=== PATIENT | female | born 1955 | race Caucasian/White ===

== ENCOUNTER → 2016-12-21 | Outpatient (CLI) | payer OTHER ==
[~2016-12-21] MED LIST: LISI10TA7 PO; ZOLP5TAB2 PO
--- NOTE | 2016-12-21 11:33 | DI ---
Indication: ITS.REASON: M79.652 PAIN IN LEFT THIGH PROCEDURE: AP and Lateral views of the Left Femur Encounter: Initial Comparison: None Findings: There is no acute fracture, dislocation or malalignment identified. Intramedullary nail in the left femur. Old healed distal femoral diaphyseal fracture. No evidence of hardware loosening or failure. Impression: No acute osseous abnormality. .
--- NOTE | 2016-12-21 11:34 | DI ---
Indication: ITS.REASON: M25.562 PAIN IN LEFT KNEE PROCEDURE: KNEE LEFT 3 VIEWS: Encounter: Initial Comparison: None Findings: There is no acute fracture, dislocation or malalignment identified. Mild medial compartment joint space narrowing. Intramedullary nail seen in the distal femur without evidence of loosening. Old healed distal femoral fracture is partially visualized. Impression: Mild medial osteoarthritis. .
== END ==
LOC: IMA 10:50
PROVIDERS: ATTEND Family Medicine
DX: M17.12 Unilateral primary osteoarthritis, left knee (principal); M79.652 Pain in left thigh

== ENCOUNTER 2017-09-12 07:30 | Inpatient (IN) ==
--- NOTE | 2017-09-22 14:59 | Orthopedic History & Physical ---
Orthopedic HPI - HPI Comments Lt knee pain for many years. Pain is moderate, aching, burning and worsening. Pain radiates into the quad. Aggrevated by wt bearing, walking, stairs and squatting. Tx tried: Rest ice, heat, Aleve, steroid injections, exercises and PT. Associated sx: Weakness, swelling, feeling of giving out. Xrays show deg changes with loss of joint space, subchondral sclerosis. PFSH Patient Stated Medical History Hypertension Yes Sleep Apnea No Osteoarthritis Yes Shingles Yes: 2015 Anesthesia Reactions Yes: N&V Ovarian Cysts Yes Post Menopausal Yes Clinic Medical History (Last Reviewed 08/11/17 @ 13:36 by Chase Torres MD) HTN (hypertension) (Acute Medical) Surgical History: 1. Left breast biopsy in 1975 at [place], [place]. 2. [place] teeth removed at some time in the at [place], [place]. 3. Debridement of open fracture at left femur with insertion of a tibial traction pin on [address] Mary at [facility] [place], [place]. Discharge diagnosis was open fracture at left femur. 4. Application of cast brace at left femur on 04/05/[address] Mary at [facility] [place], [place]. Discharge diagnosis was compound fracture at left femur and posttraumatic anemia. 5. Nailing of left femoral nonunion in July [address] Mary at [facility] [place], [place]. 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 6. Removal of screws at distal left femur on 06/23/[address] Mary at [place], [place]. Discharge diagnosis was status post fracture of left femur. 7. Arthroscopy at left knee with debridement of chondromalacia and exchange of intramedullary lyric at left femur on 01/05/[address] Mary at [place], [place]. Postoperative diagnoses were chondromalacia of the left knee, internal derangement of left knee and status post fracture of left femur with delayed union and painful bursitis over end of nail. 8. Operative laparoscopy with right oophorectomy and endometrial sampling on 08/23/[address] Up at [facility] at [place], [place]. Postoperative diagnoses were postmenopausal bleeding and complex right ovarian mass. The pathology report diagnosis on the right ovary was luteinized follicle cyst. 9. Total colonoscopy with polypectomy on 02/20/[address] Walton at [facility] [place], [place]. Discharge diagnoses were colon polyp, mild sigmoid colon diverticulosis, internal hemorrhoids and hematochezia. 10. Laparoscopic cholecystectomy, intraoperative cholangiograms and needle biopsies of the liver on 11/23/[address] Walton at [facility] [place], [place]. Pathology report diagnosis on the gallbladder was chronic cholecystitis with cholelithiasis. Pathology report diagnosis on core needle biopsies of the liver was focal mild steatosis. Family History: Family History (Last Reviewed 08/11/17 @ 13:36 by Chase Torres MD) Mother Arthritis Breast cancer HTN (hypertension) - Social History Smoking status: Former smoker Review of Systems - Constitutional Constitutional: Absent: chills, fever(s) - Cardiovascular Cardiovascular: Absent: chest pain - Respiratory Respiratory: Absent: cough - Gastrointestinal Gastrointestinal: Absent: abdominal pain - Genitourinary Genitourinary General: Absent: fever(s) - Musculoskeletal Musculoskeletal: Present: as per HPI - Neurological Neurological: Absent: numbness, tingling Medications Home Medications Medication Instructions Recorded Confirmed Type Zolpidem Tartrate [Ambien] 5 mg PO HS #0 tab 05/02/15 08/10/17 History Tylenol Arthritis 650 mg 1,300 mg PO Q8H PRN tab 02/23/17 08/10/17 History tablet,extended release Lisinopril [Prinivil] 10 mg PO DAILY 08/10/17 08/10/17 History Tramadol HCl [Ultram] 50 - 100 mg PO Q8H PRN 08/10/17 08/10/17 History Allergies Allergy/AdvReac Type Severity Reaction Status Date / Time morphine Allergy Intermediate HIVES Verified 08/09/17 14:43 Orthopedic Exam - Constitutional General Appearance: Present: alert, cooperative, no acute distress - Respiratory Exam Present: non-labored - Cardiovascular Exam Present: pedal pulses intact Capillary Refill: < 2-3 Seconds - Abdominal Exam Present: soft. Absent: tenderness, distended - Extremities Exam Present: pulses intact. Absent: cyanosis, clubbing, edema, calf tenderness - Knee Exam left Knee Exam: Present: tender along joint line, Varus deformity, stable to ligament exam, effusion - Integumentary Exam Present: pink, warm, dry, intact. Absent: rash, lesions, bruising, erythema - Neurological Exam Present: intact to light touch, no deficits - Psychiatric Exam Present: alert, oriented, normal affect Orthopedic Assessment and Plan (1) Primary osteoarthritis of left knee Status: Acute Assessment and Plan: Risks and benefits of the recommended procedure were discussed with the patient. They include: infection, nerve damage, artery damage, stroke, NM, PE, DVT, ileus, continued pain. There are also medical risks of anesthesia. Risks are not limited to the above mentioned alone. See Dr Torres's office dictation for more information. Dilshad is being admitted for a lt TKA. - Anticoagulation Therapy Anticoagulation: Resume home anticoagulant Hospital Course Summary Disclaimer: The visit summary below is not to be considered part of the above Progress Note.
[2017-09-26] MEDS ORDERED: ACETAMINOPHEN 500 MG TABLET PO ONE (06:00)
[2017-09-26] MEDS ORDERED: FAMOTIDINE PB 20 MG/50 ML BAG IV ONE (06:00)
[2017-09-26] MEDS ORDERED: DEXAMETHASONE 4 MG/ML INJECTION IVP ONE (06:00)
[2017-09-26] MEDS ORDERED: ONDANSETRON 4 MG/2 ML INJECTION IVP ONE (06:00)
[2017-09-26] MEDS ORDERED: TRANEXAMIC ACID 1,000 MG in NS 100 ML IV ONE ×2 (06:00→07:00)
[2017-09-26] MEDS ORDERED: LIDOCAINE 1% (10mg/ml) 2mL INJ PF SDV ID ONE (06:00)
[2017-09-26] MEDS ORDERED: MELOXICAM 15 MG TABLET PO ONE (06:00)
[2017-09-26] MEDS ORDERED: METOCLOPRAMIDE 10mg/2ml INJECTION IVP ONE (06:00)
[2017-09-26] MEDS ORDERED: EPINEPHrine PF 0.25 MG, BUPIVACAINE 0.25% PF 30 ML, KETOROLAC INJ 60 MG in NS 30 ML OPSITE ONE (08:00)
[2017-09-26 08:19] VITALS: BMI 32.8
[2017-09-26] MEDS ORDERED: CEFAZOLIN 1 G INJECTION IVP ONE (08:42)
[2017-09-26] MEDS: NOZIN NASAL SWAB NAS SCH ×6 (08:43→23:32)
--- NOTE | 2017-09-26 09:54 | Anesthesia Preoperative Report ---
Anesthesia Preoperative Record - Date and Time Date: 09/26/17 Preoperative Diagnosis: Lt TKA M17.12 Proposed Procedure: left TKA, robot NPO Since Date: 09/25/17 NPO Since Time: 23:00 Allergies/Adverse Reactions: Allergies Allergy/AdvReac Type Severity Reaction Status Date / Time morphine Allergy Intermediate Blister Verified 09/26/17 08:30 - Vital Signs Vital Signs: Temperature 97.8 F 09/26/17 08:17 Pulse Rate 63 09/26/17 08:52 Respiratory Rate 18 09/26/17 08:52 Blood Pressure 150/74 H 09/26/17 08:52 Pulse Oximetry 99 09/26/17 08:17 Height and Weight: Height 5 ft 3 in Weight 84.1 kg Body Mass Index 32.8 - Medications Inpatient Medications: Current Medications Lactated Ringer's (Lactated Ringers) 1,000 mls @ 50 mls/hr IV .Q20H [facility] Last Admin: 09/26/17 08:40 Dose: 50 mls/hr Epinephrine HCl 0.25 mg/Bupivacaine HCl 30 ml/Ketorolac Tromethamine 60 mg/ Sodium Chloride 62.25 mls @ 1 mls/hr OPSITE INTRAOP ONE PRN Reason: Protocol Stop: 09/28/17 22:14 Isopropyl Alcohol (Nozin Nasal Swab) 1 each LISBET Q1M JEAN Stop: 09/26/17 15:03 Last Admin: 09/26/17 08:46 Dose: 1 each Sodium Chloride (Iv Flush) 10 - 80 ml IV PRN PRN PRN Reason: Flushing Home Medications: Home Medications Medication Instructions Recorded Confirmed Type Zolpidem Tartrate [Ambien] 5 mg PO HS #0 tab 05/02/15 09/26/17 History Tylenol Arthritis 650 mg 1,300 mg PO Q8H PRN tab 02/23/17 08/10/17 History tablet,extended release Lisinopril [Prinivil] 10 mg PO DAILY 08/10/17 09/26/17 History Tramadol HCl [Ultram] 50 - 100 mg PO Q8H PRN 08/10/17 08/10/17 History cycloSPORINE [Restasis Multidose] 1 drops EACH EYE BID 09/26/17 09/26/17 History Is Patient on Beta Minoo?: No - Medical History Respiratory: DENIES: Asthma, Sleep Apnea Cardiovascular: Reports: Hypertension Gastrointestional: DENIES: Gastroesophageal Reflux Disease Neuro/Musculoskeletal: Reports: HX.MS.OSAR, Other (FX LEFT FEMUR 1994) Other History: Reports: Anesthesia Reactions (N&V) - Surgical History HEENT Surgeries: Reports: Oral Surgery (WISDOM TEETH), Other (GRINDS TEETH) GI Surgery/Treatments: Reports: Cholecystectomy, Colonoscopy Musculoskeletal Surgery/Tx: Reports: Knee Arthroscopy (LEFT), Other (LEFT FEMORAL NAILING,DEBRIDEMENT) Reproductive Surgery/Treatment: Reports: Oophorectomy (LEFT) Anesthesia Reactions: None Hx Family Anesthesia Reaction: No History of Motion Sickness: No - Social History Smoking Status: Former smoker Hx Chewing Tobacco Use: No Second Hand Exposure: No Substance Use Type: does not use Alcohol Intake: current Alcohol Intake Frequency: does not drink - Pertinent Findings EKG: Sinus Rhythm - Physical Exam Respiratory Exam: Present: lungs clear, bilateral breath sounds equal Cardiovascular Exam: Present: regular rate and rhythm - Airway Assessment Mallampati Score: II TMD: 3 Fingerbreadths Neck Extension: good Overall Assessment: no airway concerns - ASA ASA Score: 2 - Plan Anesthesia: General TIVA, Neuroaxial - Discussion Discussion: Discussed risks/options/alternatives of anesthesia and questions answered. Patient consents. Nursing pain assessment noted. Present for Discussion: spouse, children (daughter) Attestation Statement: Prior to the delivery of any anesthetic medication, I examined the patient, developed the plan, obtained the patient's consent and discussed the risk and benefits of the procedure with the patient/guardian. - Additional Information Seen by Anesthesia: Yes
[2017-09-26] MEDS ORDERED: VANCOMYCIN 1,000 MG INJECTION ONE (10:00)
[2017-09-26] MEDS ORDERED: MIDAZOLAM 2mg/2ml INJECTION ONE (10:05)
[2017-09-26] MEDS ORDERED: BUPIVACAINE 0.75%/DEXTROSE 8.5% SPINAL 2 ML AMPULE IJ ONE (10:05)
[2017-09-26] MEDS ORDERED: LIDOCAINE 2% (100mg/5mL) PF 5ml vl ONE (10:56)
[2017-09-26] MEDS ORDERED: VANCOMYCIN 1,000 MG INJECTION IAR ONE (11:02)
[2017-09-26] MEDS ORDERED: EPHEDRINE 50mg/ml INJECTION ONE (11:09)
[2017-09-26] MEDS ORDERED: SALINE FLUSH 10ml SYRINGE ONE (11:10)
[2017-09-26] MEDS ORDERED: PROPOFOL 20 ML ONE ×3 (11:13→12:19)
--- NOTE | 2017-09-26 12:26 | Operative Note ---
- Procedure Preoperative Diagnosis: Left knee primary degenerative joint disease Postoperative Diagnosis: Same as preoperative diagnosis. Surgeon: Ellie Torres MD Senior Branch Manager: Other (Sharda Valdes) Complications: None. Anesthesia: Spinal. Estimated Blood Loss: See Anesthesia Record. Fluids: Please see Anesthesia Record. Description of Procedure: Mrs. Queen and her left knee were identified and marked in the preoperative holding area. She was brought back to the operating suite. Spinal anesthetic was administered and she was placed supine on the operating table. The left lower extremity was prepped and draped in my normal sterile fashion. Timeout was performed. The K[employer]on robotic arm was used during the surgery. She had a partially correctable varus deformity. She also hyperextended 7-8 without any force. A standard anterior midline incision followed by medial parapatellar arthrotomy was performed. Anterior fat pad and meniscus were removed. She had complete loss of cartilage in the medial compartment. The patella was everted and a patella osteotomy was performed leaving 12 mm of bone. Tibial and femoral arrays and checkpoints were placed both within the original incision. The bone was then registered with the Kazeon robot. Osteophytes were removed and gaps were captured both 90 and 0 degrees with correction. Due to her hyperextension deformity opted to obtain 16 mm gaps and extension 18 and flexion. The Kazeon robotic arm was then used to assist with the bone cuts. Posterior osteophytes and remaining meniscus were removed. Trial components were placed. We used a 2 femur and a 2 tibia with a 9 mm spacer. She tracked well and was well balanced throughout range of motion. The leg was exsanguinated and the tourniquet inflated to 250 mmHg. The tibia was stamped. The bone was prepared for cementing and components were cemented into place and allowed to cure in extension. The tourniquet was let down and hemostasis obtained with electrocautery. The knee was ranged one more time to ensure good stability, balance and patellar tracking. 1 g of vancomycin powder was then placed into the knee joint. The capsulotomy was then closed with #1 Vicryl. I then left my election assistant to close the subcutaneous tissue with 2-0 Vicryl. Running 4-0 Monocryl will be used in the subcuticular layer. Dermabond will be used on the skin followed by sterile dressing. After drapes are removed patient will be taken to recovery room under the care of anesthesia.
[2017-09-26] MEDS ORDERED: NOZIN NASAL SWAB NAS ONE (13:28)
[2017-09-26] MEDS ORDERED: DiphenhydrAMINE 25 MG CAPSULE PO PRN (13:28)
[2017-09-26] MEDS ORDERED: LORazepam 1 MG TABLET PO PRN (13:28)
[2017-09-26] MEDS ORDERED: ONDANSETRON 4 MG/2 ML INJECTION IVP PRN (13:28)
[2017-09-26] MEDS ORDERED: TRAMADOL 50 MG TABLET PO PRN (13:28)
[2017-09-26] MEDS ORDERED: DiphenhydrAMINE 50 MG/ML INJECTION IVP PRN (13:28)
[2017-09-26] MEDS: NS 1,000 ML IV SCH (13:50)
--- NOTE | 2017-09-26 13:51 | XRay Report ---
Indication: postoperative image PROCEDURE: XR knee LT 2V: Encounter: Initial Comparison: August 09, 2017 Findings: Postoperative changes of left total knee replacement are seen. There is expected postoperative subcutaneous gas. No evidence of hardware failure or acute fracture. No retained radiopaque surgical instruments or sponges. Overlying material causing artifact. Prior left femoral lyric again seen. Impression: New left total knee prosthesis without evidence of immediate complication. .
[2017-09-26] MEDS ORDERED: LR 1,000 ML IV SCH (14:00)
[2017-09-26] MEDS ORDERED: SALINE FLUSH 10ml SYRINGE IV PRN (14:52)
[2017-09-26] MEDS: ACETAMINOPHEN 325 MG TABLET PO SCH ×3 (14:56→22:09)
[2017-09-26] MEDS: CEFAZOLIN 2 G in NS 50 ML IV SCH (18:42)
[2017-09-26] MEDS: ASPIRIN *EC* 81 MG TABLET PO SCH (20:47)
[2017-09-26] MEDS: CycloSPORINE 0.05% EYE DROPS 4ml EACH EYE SCH (20:47)
[2017-09-26] MEDS: NAPROXEN 220 MG TABLET PO SCH (20:47)
[2017-09-26] MEDS: DOCUSATE SODIUM 100 MG CAPSULE PO SCH (20:48)
[2017-09-26] MEDS ORDERED: ZOLPIDEM 5 MG TABLET PO SCH (21:00)
[2017-09-26] MEDS ORDERED: SENNOSIDES 8.6 MG TABLET PO SCH (21:00)
[2017-09-27] MEDS: NS 1,000 ML IV SCH (01:19)
[2017-09-27] MEDS: CEFAZOLIN 2 G in NS 50 ML IV SCH (01:36)
[2017-09-27] MEDS: NOZIN NASAL SWAB NAS SCH ×2 (05:01→13:33)
--- NOTE | 2017-09-27 08:00 | Orthopedic Progress Note ---
Date: Date: 09/27/17 Time: 757 Subjective/Severity of Illness: Dilshad is doing great. Minimal pain. No CP or breathing issues. She has been up with good tolerance. No drainage or wound concerns. Labs stable. Expects discharge later today. Orthopedic Objective PO Vital signs: Temperature 97.8 F 09/27/17 04:00 Pulse Rate 71 09/27/17 04:00 Respiratory Rate 16 09/27/17 04:00 Blood Pressure 123/68 09/27/17 04:00 Pulse Oximetry 97 09/27/17 04:00 Height and Weight: Height 5 ft 3 in Weight 185 lb 6.54 oz Body Mass Index 32.8 - Constitutional General Appearance: Present: alert, cooperative, no acute distress - Respiratory Exam Present: non-labored - Cardiovascular Exam Present: pedal pulses intact - Surgical Site Incision: Mepilex dressing intact, no drainage - Integumentary Exam Present: pink, warm, dry - Neurological Exam Present: intact to light touch, no deficits - Psychiatric Exam Present: alert, oriented, normal affect - Labs Result Diagrams: 09/27/17 03:54 09/27/17 03:54 Abnormal lab results 09/27/17 09/27/17 Range/Units 03:54 03:54 Hgb 11.8 L (12-16) GM/DL Chloride 110 H (98-107) MEQ/L BUN 22.0 H (7-17) MG/DL BUN/Creatinine Ratio 31 H (6-26) RATIO H & H 09/27/17 Range/Units 03:54 Hgb 11.8 L (12-16) GM/DL Hct 37.5 (36-46) % Orthopedic Assessment and Plan (1) Primary osteoarthritis of left knee Status: Acute Assessment and Plan: Aspirin protocol for VTE prophylaxis. SCD's. PT/OT services to improve independent function. Discharge Planning per Case Management. Expect discharge today. - Anticoagulation Therapy Anticoagulation: ASA 81 mg PO BID x6 weeks Hospital Course Summary Disclaimer: The visit summary below is not to be considered part of the above Progress Note.
--- NOTE | 2017-09-27 08:01 | Anesthesia Postoperative Note ---
- Date and Time Date: 09/26/17 Time: 14:30 - Status Patient Participated in Evaluation: Patient Participated in Person Vital Signs: Temperature 97.8 F 09/27/17 04:00 Pulse Rate 71 09/27/17 04:00 Respiratory Rate 16 09/27/17 04:00 Blood Pressure 123/68 09/27/17 04:00 Pulse Oximetry 97 09/27/17 04:00 Respiratory Function: Airway Patent Cardiovascular Function: Regular Pulse EKG: Sinus Rhythm Mental Status: Alert and Oriented Pain Intensity: 0 Hydration: IV Infusing Complications During Recover: None Apparent - Follow-Up Instructions Instructions: Per Surgeon
[2017-09-27 08:10] VITALS: TEMP 97.6
[2017-09-27] MEDS: ACETAMINOPHEN 325 MG TABLET PO SCH ×2 (08:24→13:33)
[2017-09-27] MEDS: DOCUSATE SODIUM 100 MG CAPSULE PO SCH (08:25)
[2017-09-27] MEDS: NAPROXEN 220 MG TABLET PO SCH (08:25)
[2017-09-27] MEDS: ASPIRIN *EC* 81 MG TABLET PO SCH (08:25)
[2017-09-27] MEDS: CycloSPORINE 0.05% EYE DROPS 4ml EACH EYE SCH (08:25)
[2017-09-27] MEDS ORDERED: POLYETHYL GLYCOL 3350 17gm PACKET PO SCH (09:00)
[2017-09-27] MEDS ORDERED: LISINOPRIL 10 MG TABLET PO SCH (09:00)
[2017-09-27 11:54] VITALS: BP 138/76; PULSE 60; RESP 16; O2SAT 99
[2017-09-27] MEDS ORDERED: SENNOSIDES 8.6 MG TABLET PO PRN (12:56)
--- NOTE | 2017-09-27 15:50 | Discharge Summary ---
Orthopedic Discharge Info Date of admission: 09/26/17 07:53 Anticipated date of discharge: 09/27/17 Primary care physician: Autumn Reddy DO Attending Physician: Chase Torres MD Consults: 09/26/17 07:58 Consult to Anesthesiology [CONS] Routine Reason For Exam: Preoperative Assessment 09/26/17 13:28 Case Management Consult [CONS] Routine Reason For Exam: Discharge Planning DME-Walker [CONS] Routine Height: 5 ft 3 in Weight: 185 lb 6.54 oz Total Joint Outpatient Therapy [CONS] Routine Comment: Remove dressing in 2 weeks - Discharge Diagnosis (1) Primary osteoarthritis of left knee Status: Acute - Laboratory Result Diagrams: 09/27/17 03:54 09/27/17 03:54 Laboratory: Abnormal lab results 09/27/17 09/27/17 Range/Units 03:54 03:54 Hgb 11.8 L (12-16) GM/DL Chloride 110 H (98-107) MEQ/L BUN 22.0 H (7-17) MG/DL BUN/Creatinine Ratio 31 H (6-26) RATIO H & H 09/27/17 Range/Units 03:54 Hgb 11.8 L (12-16) GM/DL Hct 37.5 (36-46) % Orthopedic Discharge HPI - HPI Comments Lt knee pain for many years. Pain is moderate, aching, burning and worsening. Pain radiates into the quad. Aggrevated by wt bearing, walking, stairs and squatting. Tx tried: Rest ice, heat, Aleve, steroid injections, exercises and PT. Associated sx: Weakness, swelling, feeling of giving out. Xrays show deg changes with loss of joint space, subchondral sclerosis. Orthopedic Hospital Course Hospital course: 09/27/17 15:47 After appropriate preoperative clearance and signing of operative consent, the patient was given IV antibiotics, according to orthopedic protocol. The patient was taken to the operating room and underwent elective total knee arthroplasty. Following surgery, antibiotics were discontinued less than 24 hours according to joint protocol. Appropriate anticoagulants were initiated and SCDs added for DVT prevention. The dressing was clean, dry, and intact. Pain control was obtained via multimodal approach. Bowel motivation addressed with scheduled and PRN medications. Early mobilization was initiated through PT services. Discharge arrangements made by a collaborative effort between the patient and Case Management. Follow-up is scheduled in 2-3 weeks. Discharge instructions given by orthopedic providers and nursing staff at discharge. Discharge condition was good. Care extended to > 2 midnight stays?: No Discharge Plan - Med Rec/Dispo Referrals/Follow Up: Chase Torres MD [Physician] - 10/23/17 10:45 am Pierce Instructions: [facility] Postop Instructions Additional Instructions: [facility] ON 09/28/2017 AT 1:30PM FOR PHYSICAL THERAPY EVAL. PHONE [phone] Prescriptions: New Acetaminophen [Tylenol] 650 mg PO QID tablet Aspirin *EC* [Ecotrin] 81 mg PO BID tablet Docusate Sodium [Colace] 100 mg PO BID capsule Naproxen [Aleve] 440 mg PO BIDWM tablet PEG 3350 17gm PACKET [Miralax] 17 gm PO DAILY packet Tramadol [Ultram] 50 - 100 mg PO Q6H PRN #40 tab PRN Reason: Pain Milk of Magnesia [Mom] 30 ml PO DAILY udc Continue Zolpidem Tartrate [Ambien] 5 mg PO HS #0 tab Tramadol HCl [Ultram] 50 - 100 mg PO Q8H PRN PRN Reason: Pain cycloSPORINE [Restasis Multidose] 1 drops EACH EYE BID Lisinopril [Prinivil] 10 mg PO DAILY Tylenol Arthritis 650 mg tablet,extended release 1,300 mg PO Q8H PRN tab PRN Reason: pain ergocalciferol (vitamin D2) 50,000 unit capsule 50,000 unit PO DAILY #2 cap - Disposition 01 Discharged Home, Self-Care - Dismissal Complete Discharge Instructions are:: Complete
[2017-09-27] MEDS ORDERED: NAPROXEN 220 MG TABLET PO SCH (17:30)
[2017-09-28] MEDS ORDERED: BISACODYL 10 MG SUPPOSITORY RECTALLY SCH (20:00)
== END 2017-09-27 16:30 | disposition home or self-care (01) | DRG 470 ==
LOC: EDSTATUS 07:30 → NMC.PERIOP 09-26 07:53 → SRG 09-26 12:36
PROVIDERS: ADMIT Orthopaedic Surgery; ATTEND Orthopaedic Surgery